=== PATIENT | female | born 1970 | race Two or more races ===

== ENCOUNTER 2021-07-20 14:23 | Inpatient (IN) | payer BC, SELFPAY ==
--- NOTE | ~2021-07-20 | CT_ITS ---
EXAMINATION: CT ABDOMEN AND PELVIS WITHOUT CONTRAST CLINICAL INFORMATION: Flank pain. COMPARISON: None TECHNIQUE: Multidetector volumetric imaging was performed from the superior aspect of the liver through the pubic symphysis. Sagittal and coronal reformatted images were obtained on the technologist's workstation. This CT examination was performed using dose optimization techniques as appropriate, variously including the following: *Automated exposure control *Adjustment of mA and/or kV according to patient size (this includes techniques or standardized protocols for targeted exams where dose is matched to indication/reason for exam; i.e. extremities or head) *Use of iterative reconstruction technique DLP: 542 mGy-cm FINDINGS: LUNG BASES: The visualized lung bases are unremarkable. LIVER, GALLBLADDER, AND BILIARY TREE: The liver is normal in size, shape, and attenuation. No focal hepatic lesion or biliary ductal dilatation is present. The gallbladder is nondistended with no evidence of radiopaque gallstones, gallbladder wall thickening, or obvious pericholecystic inflammatory changes. PANCREAS: Unremarkable. SPLEEN: Unremarkable. ADRENAL GLANDS: Unremarkable. KIDNEYS AND URETERS: The kidneys are normal in size, shape, and attenuation. No renal or ureteral stone. Minimal asymmetry of the proximal right ureter with minimal adjacent stranding. Findings could represent a recently passed stone versus a mild infectious or inflammatory process. No renal parenchymal lesion, however, evaluation is limited without IV contrast. BLADDER: Unremarkable. GASTROINTESTINAL TRACT: Mild stool throughout the colon. No small or large bowel obstruction. No bowel wall thickening or associated inflammatory change. Unremarkable appendix. PERITONEAL CAVITY: No intra-abdominal free air or free fluid. No intra-abdominal mass or organized fluid collection/abscess formation. ABDOMINAL WALL: No significant hernia is appreciated. LYMPH NODES: Normal. VASCULAR: Unremarkable. PELVIC VISCERA: The uterus and adnexa are unremarkable. OSSEOUS STRUCTURES: Unremarkable. CT/CT abdomen pelvis wo con IMPRESSION: 1. Minimal asymmetric prominence of the proximal right ureter with minimal adjacent stranding. Findings could represent a recently passed stone. No renal or ureteral stone. No significant hydronephrosis or nephrolithiasis. Unremarkable urinary bladder without associated calcification or inflammatory change. 2. Mild stool throughout the colon. No small or large bowel obstruction. Unremarkable appendix. 3. No intra-abdominal mass, lymphadenopathy, or ascites.
[2021-07-20 14:54] VITALS: BP 131/87; PULSE 111; RESP 18; TEMP 37.4; O2SAT 97; BMI 26.7
[2021-07-20 15:59] LABS: MANUAL DIFF FLAG NO
[2021-07-20 16:01] LABS: Basophils Percent Auto 0.3 % (0-2); Hematocrit 35.2 % (37-47); Hemoglobin 11.6 g/dl (12.0-16.0); Imm Gran Abs Auto 0.02 X10*3/uL (0.00-0.03); Imm Gran Pct Auto 0.3 % (0.0-0.4); Lymphocytes Absolute Auto 0.9 X10*3/uL (1.2-4.9); Lymphocytes Percent Auto 14.1 % (20-40); Mean Corpuscular Hemoglobin 27.7 pg (27.0-33.0); Mean Platelet Volume 10.2 fL (9.4-12.3); Monocytes Absolute Auto 0.3 X10*3/uL (0.1-1.2); Monocytes Percent Auto 4.7 % (2-11); Neutrophils Absolute Auto 4.9 X10*3/uL (2.0-8.3); Neutrophils Percent Auto 80.6 % (45-73); Platelet Count 240 X10*3/uL (160-400); Red Blood Count 4.19 X10*6/uL (4.20-5.50); Red Cell Distribution Width 13.1 % (11.0-16.0); White Blood Count 6.1 X10*3/uL (4.8-10.8)
[2021-07-20 16:12] LABS: Appearance Urine HAZY; Color Urine YELLOW; Glucose Urine UA NEG (NEG); Leukocyte Esterase Urine NEG (NEG); Nitrite Urine NEG (NEG); Specific Gravity - Urine <= 1.005 (1.005-1.025); UACC Culture Trigger NO; Urine Blood TRACE (NEG); Urine Ketones NEG (NEG); Urine Protein 1+ MG/DL (NEG-TRACE)
[2021-07-20 16:18] LABS: Alanine Aminotransferase 41 U/L (0-31); Albumin Level 4.2 g/dL (3.5-5.0); Alkaline Phosphatase 97 U/L (39-117); Anion Gap 13 (12-20); Aspartate Amino Transferase 84 U/L (5-31); Bilirubin Total 1.8 mg/dL (0.0-1.0); Blood Urea Nitrogen 7 mg/dL (9-16); Calcium 9.2 mg/dL (8.4-10.2); Carbon Dioxide 25 mmol/L (22-29); Chloride 102 mmol/L (96-108); Estimated Glomerular Filt Rate > 60; Glucose Random 128 mg/dL (60-115); Potassium 3.5 mmol/L (3.3-5.1); Sodium 136 mmol/L (135-145); Total Protein 7.4 g/dL (6.5-8.0)
[2021-07-20 16:26] LABS: RBC Urine 0 /HPF (0); Squamous Epithelial Cell Urine 1+ /LPF; WBC Urine 0-2 /HPF (0-4)
--- NOTE | 2021-07-20 16:44 | ED.FEMALEGU ---
HPI - Female Genitourinary General Chief complaint: Urogenital-Female Stated complaint: uti Source: patient Mode of arrival: ambulatory Limitations: no limitations History of Present Illness HPI Narrative: 51-year-old female presents with fevers, bilateral flank and abdominal pain, was treated for UTI on 07/14 with Augmentin. Patient states the symptoms have worsened, feels tired, fatigued, nauseous is having a difficult time getting comfortable. MD elicited complaint: UTI Pertinent past history: recurrent UTIs Onset (ago): week(s) (1) Location of symptoms: suprapubic and flank Severity: moderate Severity scale (1-10): 8 Quality of pain: dull and aching Consistency: constant Vaginal discharge: none Vaginal bleeding: none Urinary symptoms: Flank Pain Exacerbating factors: urination, movement and palpation Relieving factors: none Associated symptoms: abdominal pain, loss of appetite, weakness, fever, chills and nausea Treatment prior to arrival: none Patient : No Related Data Allergies Allergy/AdvReac Type Severity Reaction Status Date / Time Iodinated Contrast Media AdvReac Rash Verified 07/20/21 14:53 [IV Contrast Dye] Review of Systems Review of Systems: Constitutional: Positive Fever, positive Chills ENT/Mouth: No sore throat Eyes: No Eye Pain, No Swelling, No Redness Cardiovascular: No Chest Pain, No SOB Respiratory: No Cough, No Sputum, No Wheezing Gastrointestinal: positive Nausea, no Vomiting, No Diarrhea, positive abdominal pain Genitourinary: positive Dysuria, positive urinary frequency, no Hematuria, positive Flank Pain, no hesitancy Musculoskeletal: No joint pain, No Myalgias Skin: No Skin Lesions, No rash Neuro: No Weakness, No Numbness, No Headache Psych: No Anxiety/Panic, No Depression Heme/Lymph: No Bruising, No Lymphadenopathy Endocrine: No Polyuria, No Polydipsia Yes all other systems are reviewed and are negative [facility] Past Medical History Attestation statement: The following information was validated with the patient. 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 Oriented X3. Moderate distress. Eyes: Pupils equal, round and reactive to light. ENT: Pharynx normal. Neck: Normal inspection. Neck supple. CVS: Tachycardic heart rate and rhythm. Pulses normal. Respiratory: No respiratory distress. Breath sounds normal. Abdomen: Soft and tender to the right lower left lower and suprapubic, positive CVA tenderness bilaterally. Skin: Skin warm and dry. Normal skin color. Normal skin turgor. Extremities: No lower extremity edema. Moves all extremities against resistance. Strength 5/5. Neuro: No motor deficit. No sensory deficit. Cranial nerves 2-12 intact. Course Course Course Narrative: 51-year-old female presents for worsening UTI symptoms, increased fevers measuring as high as 101.6, with bilateral flank pain radiating to both groins and suprapubic. Patient was started on Augmentin on 07/14 for a UTI, has been taking medications as prescribed. Symptoms have worsening, physical presentation concerning for possible kidney stone at, pyelo, sepsis. Will resuscitate with 2 L of fluid, IV ceftriaxone, labs, cultures are pending. CT abdomen and pelvis show some stranding, urinalysis shows trace of heme, will discuss with hospitalist. 6:11 p.m. patient will be admitted for UTI, pyelonephritis. Patient and patient's family verbalized understanding of and agrees with plan of care. Consultations Consultation #1: [place] Time: 18:10 MDM - Female Genitourinary MDM Narrative Medical decision making narrative: Pyelonephritis, kidney stone, sepsis Differential Diagnosis Differential diagnosis: Likely urinary tract infection Medical Records Attestation: I reviewed the patient's medical records. Lab Data Attestation: I reviewed the patient's lab results. Result diagrams: 07/20/21 15:55 07/20/21 15:55 Labs: Lab Results 07/20/21 07/20/21 07/20/21 Range/Units 15:55 15:55 15:55 WBC 6.1 (4.8-10.8) X10*3/uL RBC 4.19 L (4.20-5.50) X10*6/uL Hgb 11.6 L (12.0-16.0) g/dl Hct 35.2 L (37-47) % MCV 84.0 (80-98) fL MCH 27.7 (27.0-33.0) pg MCHC 33.0 (31.0-35.0) g/dl RDW 13.1 (11.0-16.0) % Plt Count 240 (160-400) X10*3/uL MPV 10.2 (9.4-12.3) fL Immature Gran % (Auto) 0.3 (0.0-0.4) % Neut % (Auto) 80.6 H (45-73) % Lymph % (Auto) 14.1 L (20-40) % [place] % (Auto) 4.7 (2-11) % Eos % (Auto) 0.0 (0-4) % Baso % (Auto) 0.3 (0-2) % Lymph # (Auto) 0.9 L (1.2-4.9) X10*3/uL [place] # (Auto) 0.3 (0.1-1.2) X10*3/uL Eos # (Auto) 0.0 (0.0-0.4) X10*3/uL Baso # (Auto) 0.0 (0.0-0.2) X10*3/uL Abs Immat Gran (auto) 0.02 (0.00-0.03) X10*3/uL Absolute Neuts (auto) 4.9 (2.0-8.3) X10*3/uL Absolute Nucleated RBC 0.000 (0.0-0.012) X10*3/uL Nucleated RBC % (auto) 0.0 (0.0-0.2) /100WBC Sodium 136 (135-145) mmol/L Potassium 3.5 (3.3-5.1) mmol/L Chloride 102 (96-108) mmol/L Carbon Dioxide 25 (22-29) mmol/L Anion Gap 13 (12-20) BUN 7 L (9-16) mg/dL Creatinine 0.74 (0.5-1.4) mg/dL Estim Creat Clear Calc 92.0 Estimated GFR > 60 Random Glucose 128 H (60-115) mg/dL Lactic Acid (0.5-2.0) mmol/L Calcium 9.2 (8.4-10.2) mg/dL Total Bilirubin 1.8 H (0.0-1.0) mg/dL AST 84 H (5-31) U/L ALT 41 H (0-31) U/L Alkaline Phosphatase 97 (39-117) U/L Total Protein 7.4 (6.5-8.0) g/dL Albumin 4.2 (3.5-5.0) g/dL Urine Color YELLOW Urine Appearance HAZY Urine pH 6.0 (5.0-8.0) Ur Specific [place] <= 1.005 (1.005-1.025) Urine Protein 1+ H (NEG-TRACE) MG/DL Urine Glucose (UA) NEG (NEG) MG/DL Urine Ketones NEG (NEG) MG/DL Urine Blood TRACE (NEG) Urine Nitrite NEG (NEG) Ur Leukocyte Esterase NEG (NEG) Urine RBC 0 (0) /HPF Urine WBC 0-2 (0-4) /HPF Ur Squamous Epith Cells 1+ /LPF Urine Bacteria NONE /LPF Coronavirus (PCR) (Negative) Influenza Type A (PCR) (Negative) Influenza Type B (PCR) (Negative) RSV RNA Qual (PCR) (Negative) 07/20/21 07/20/21 Range/Units 17:11 17:11 WBC (4.8-10.8) X10*3/uL RBC (4.20-5.50) X10*6/uL Hgb (12.0-16.0) g/dl Hct (37-47) % MCV (80-98) fL MCH (27.0-33.0) pg MCHC (31.0-35.0) g/dl RDW (11.0-16.0) % Plt Count (160-400) X10*3/uL MPV (9.4-12.3) fL Immature Gran % (Auto) (0.0-0.4) % Neut % (Auto) (45-73) % Lymph % (Auto) (20-40) % [place] % (Auto) (2-11) % Eos % (Auto) (0-4) % Baso % (Auto) (0-2) % Lymph # (Auto) (1.2-4.9) X10*3/uL [place] # (Auto) (0.1-1.2) X10*3/uL Eos # (Auto) (0.0-0.4) X10*3/uL Baso # (Auto) (0.0-0.2) X10*3/uL Abs Immat Gran (auto) (0.00-0.03) X10*3/uL Absolute Neuts (auto) (2.0-8.3) X10*3/uL Absolute Nucleated RBC (0.0-0.012) X10*3/uL Nucleated RBC % (auto) (0.0-0.2) /100WBC Sodium (135-145) mmol/L Potassium (3.3-5.1) mmol/L Chloride (96-108) mmol/L Carbon Dioxide (22-29) mmol/L Anion Gap (12-20) BUN (9-16) mg/dL Creatinine (0.5-1.4) mg/dL Estim Creat Clear Calc Estimated GFR Random Glucose (60-115) mg/dL Lactic Acid 1.3 (0.5-2.0) mmol/L Calcium (8.4-10.2) mg/dL Total Bilirubin (0.0-1.0) mg/dL AST (5-31) U/L ALT (0-31) U/L Alkaline Phosphatase (39-117) U/L Total Protein (6.5-8.0) g/dL Albumin (3.5-5.0) g/dL Urine Color Urine Appearance Urine pH (5.0-8.0) Ur Specific [place] (1.005-1.025) Urine Protein (NEG-TRACE) MG/DL Urine Glucose (UA) (NEG) MG/DL Urine Ketones (NEG) MG/DL Urine Blood (NEG) Urine Nitrite (NEG) Ur Leukocyte Esterase (NEG) Urine RBC (0) /HPF Urine WBC (0-4) /HPF Ur Squamous Epith Cells /LPF Urine Bacteria /LPF Coronavirus (PCR) NEGATIVE (Negative) Influenza Type A (PCR) NEGATIVE (Negative) Influenza Type B (PCR) NEGATIVE (Negative) RSV RNA Qual (PCR) NEGATIVE (Negative) Imaging Data CT scan - abdomen: Attestation: I personally reviewed and interpreted this imaging study as follows: Radiologist's impression: EXAMINATION: XR CHEST CLINICAL INFORMATION: Shortness of breath. COMPARISON: 07/12/21. TECHNIQUE: Frontal view of the chest was obtained. FINDINGS: Evaluation is limited by suboptimal inspiration. The lungs are clear with no focal opacity or other abnormality is seen. The pleural spaces are clear. The heart and mediastinal structures are normal. XR/XR chest 1V IMPRESSION: Suboptimal evaluation with low lung volumes. No abnormality demonstrated. ? Critical Care Time Critical Care Time Critical Care Time: Yes Total Critical Care Time: 45 Attestation: I have personally provided critical care time exclusive of time spent on separately billable procedures. Time includes review of laboratory data, radiology results, discussion with consultants, and monitoring for potential decompensation. Interventions were performed as documented. Discharge Plan Discharge Clinical Impression: Pyelonephritis Urinary tract infection Qualifiers: Urinary tract infection type: acute pyelonephritis Qualified Code(s): N10 - Acute pyelonephritis Patient Disposition: Admitted As Inpatient
[2021-07-20] MEDS: Acetaminophen 325 MG TABLET 650 MG PO ×2 (17:09→20:21)
[2021-07-20] MEDS: 0.9 % Sodium Chloride 1,000 ML 999 ML IVCONT ×2 (17:09→18:20)
[2021-07-20 17:32] LABS: Lactic Acid 1.3 mmol/L (0.5-2.0)
[2021-07-20 18:18] LABS: Influenza A PCR NEGATIVE (Negative); Influenza B PCR NEGATIVE (Negative); Resp Syncy Virus RNA Qual PCR NEGATIVE (Negative); SARS COV2 PCR INHOUSE NEGATIVE (Negative)
[2021-07-20] MEDS: Morphine Sulfate 4 MG/ML CARTRIDGE IVPUSH (18:23)
[2021-07-20] MEDS: cefTRIAXone sodium 1 GM in 0.9 % Sodium Chloride 50 ML IV (18:27)
[2021-07-20 18:28] VITALS: BP 140/88; PULSE 82; RESP 18; TEMP 36.9; O2SAT 96
[2021-07-20 19:13] VITALS: BP 113/60; PULSE 80; RESP 18; TEMP 36.6; O2SAT 98
--- NOTE | 2021-07-20 19:23 | PC.NURSE ---
Pt alert and oriented x4, calm and cooperative. Pt states 5/10 lower abd pain. IV intact. Vitals stable, pt remains afebrile. Pt resting in stretcher at this time, will continue to monitor.
--- NOTE | 2021-07-20 19:45 | P.HPHOSP_ITS ---
History of Present Illness Date of Service: 07/20/21 Chief Complaint: Bilateral flank pain 51-year-old female With a past medical history of kidney stones presented to the hospital with a chief complaint of left bad pain. Patient reported that she was diagnosed with urinary tract infection and was given Augmentin as outpatient and had urine test done with the PCP on 07/14/2021; Since then she has been not feeling well; her symptoms have been gradually worsening; complains of left side abdominal pain/flank pain; complains of burning when she pees. Patient initially thought she probably had a kidney stone; denies any blood in the urine. Mentioned that today sugar call from the PCP of his that her urine is growing E coli. She has been complaint with home medications including pain medications antibiotics; she took her Tylenol and states she got a temperature of and 101 F; associated chills and whole-body rigors. Hence decided to come to evaluation. Denies any chest pain palpitations lightheadedness or dizziness. Denies any numbness tingling or focal weakness. Review of all other systems is negative except mentioned above ER course: Per ER team patient's exam bilateral CVA tenderness noted; patient's urinalysis negative-attributed to recent antibiotics; CT scan showed Minimal asymmetric prominence of the proximal right ureter with minimal adjacent stranding.? Given ceftriaxone. Admitted to the hospital for further management. [facility] Medical History Kidney abnormality of fetus on ultrasound Kidney stone Pertinent family history: Reviewed. Noncontributory to the current presentation Social History Alcohol intake: never Patient Tobacco Use Status: Never used Tobacco Use of substances other than those prescribed or required for medical reasons: No Advance Directives: No Advance Directives Information Provided: No Patient : No Meds Allergies Allergy/AdvReac Type Severity Reaction Status Date / Time Iodinated Contrast Media AdvReac Rash Verified 07/20/21 14:53 [IV Contrast Dye] Active Medications: Current Medications Acetaminophen (Acetaminophen 325 Mg Tablet) 650 mg PO Q6H PRN PRN Reason: Pain, Mild (Pain Scale 1-3) Heparin Sodium (Porcine) (Heparin Sodium,Porcine 5,000 Unit/Ml Vial) 5,000 unit SUBCUT Q8H GIULIA Magnesium Hydroxide (Milk Of Magnesia 30 Ml Oral.Susp) 30 ml PO DAILY PRN PRN Reason: Constipation Melatonin (Melatonin 3 Mg Tablet) 6 mg PO BEDTIME PRN PRN Reason: Insomnia Oxycodone HCl (Oxycodone Hcl Immed Release 5 Mg Tablet) 5 mg PO Q6H PRN PRN Reason: Pain, Severe (Pain Scale 7-10) Senna (Sennosides 8.6 Mg Tablet) 17.2 mg PO BEDTIME PRN PRN Reason: Constipation Sodium Chloride (0.9 % Sodium Chloride Flush 3 Ml Syringe) 3 ml IVFLUSH QSHIFT [facility] Physical Exam Vital Signs and Narrative: Vital Signs: Last Vital Signs Temp 98 F 07/20/21 19:13 Pulse 80 07/20/21 19:13 Resp 18 07/20/21 19:13 BP 113/60 07/20/21 19:13 Pulse Ox 98 07/20/21 19:13 Body Mass Index 26.7 Gen: Appears be in no acute distress HEENT: NCAT, Moist mucosa. Pulmonary: Vesicular breath sounds, fair air entry CVS: Normal S1-S2 Abdomen: BS+, Soft, Nontender; bilateral CVA tenderness positive; no guarding or rigidity and that did abdomen Extremities: Warm well perfused Neuro: Alert and awake. Results Labs CBC and Chem 7: 07/20/21 15:55 07/20/21 15:55 Labs: Laboratory Results - last 24 hr 07/20/21 07/20/21 07/20/21 15:55 15:55 15:55 MCV 84.0 MCH 27.7 MCHC 33.0 RDW 13.1 Plt Count 240 MPV 10.2 Immature Gran % (Auto) 0.3 Neut % (Auto) 80.6 H Lymph % (Auto) 14.1 L [place] % (Auto) 4.7 Eos % (Auto) 0.0 Baso % (Auto) 0.3 Lymph # (Auto) 0.9 L [place] # (Auto) 0.3 Eos # (Auto) 0.0 Baso # (Auto) 0.0 Abs Immat Gran (auto) 0.02 Absolute Neuts (auto) 4.9 Absolute Nucleated RBC 0.000 Nucleated RBC % (auto) 0.0 Anion Gap 13 Estim Creat Clear Calc 92.0 Estimated GFR > 60 Random Glucose 128 H Lactic Acid Calcium 9.2 Total Bilirubin 1.8 H AST 84 H ALT 41 H Alkaline Phosphatase 97 Total Protein 7.4 Albumin 4.2 Urine Color YELLOW Urine Appearance HAZY Urine pH 6.0 Ur Specific [place] <= 1.005 Urine Protein 1+ H Urine Glucose (UA) NEG Urine Ketones NEG Urine Blood TRACE Urine Nitrite NEG Ur Leukocyte Esterase NEG Urine RBC 0 Urine WBC 0-2 Ur Squamous Epith Cells 1+ Urine Bacteria NONE Coronavirus (PCR) Influenza Type A (PCR) Influenza Type B (PCR) RSV RNA Qual (PCR) 07/20/21 07/20/21 17:11 17:11 MCV MCH MCHC RDW Plt Count MPV Immature Gran % (Auto) Neut % (Auto) Lymph % (Auto) [place] % (Auto) Eos % (Auto) Baso % (Auto) Lymph # (Auto) [place] # (Auto) Eos # (Auto) Baso # (Auto) Abs Immat Gran (auto) Absolute Neuts (auto) Absolute Nucleated RBC Nucleated RBC % (auto) Anion Gap Estim Creat Clear Calc Estimated GFR Random Glucose Lactic Acid 1.3 Calcium Total Bilirubin AST ALT Alkaline Phosphatase Total Protein Albumin Urine Color Urine Appearance Urine pH Ur Specific [place] Urine Protein Urine Glucose (UA) Urine Ketones Urine Blood Urine Nitrite Ur Leukocyte Esterase Urine RBC Urine WBC Ur Squamous Epith Cells Urine Bacteria Coronavirus (PCR) NEGATIVE Influenza Type A (PCR) NEGATIVE Influenza Type B (PCR) NEGATIVE RSV RNA Qual (PCR) NEGATIVE Imaging Radiologist's Impressions: Impressions Abdomen/Pelvis CT 07/20/21 16:47 IMPRESSION: 1. Minimal asymmetric prominence of the proximal right ureter with minimal adjacent stranding. Findings could represent a recently passed stone. No renal or ureteral stone. No significant hydronephrosis or nephrolithiasis. Unremarkable urinary bladder without associated calcification or inflammatory change. 2. Mild stool throughout the colon. No small or large bowel obstruction. Unremarkable appendix. 3. No intra-abdominal mass, lymphadenopathy, or ascites. Assessment and Plan 51-year-old female with a past medical history of kidney stones, recent diagnosis of UTI presented to the hospital with a chief complaint of bilateral flank pain; noted to have pyelonephritis. Admitted for further management. UTI: Continue ceftriaxone. Follow final culture results from [facility]. Pain control Left-sided abdominal pain: CT scan shows findings on the right side. No guarding or rigidity on examination. Patient had left-sided CVA tenderness. Mild stool burden noted on the CT abdomen. Constipation likely contributing. Bowel regimen Mild transaminitis: Will obtain acute hepatitis panel. CT scan showed normal liver and gallbladder. DVT prophylaxis: Subcu heparin Code status: Full code Quality Stroke Does the patient have a stroke diagnosis?: No VTE Prior VTE?: No VTE Risk Level:: Medical - moderate - high VTE Device Contraindication: Treatment Not Indicated VTE Drug Contraindication: N/A - Med Ordered
[2021-07-20] MEDS: Heparin Sodium,Porcine 5,000 UNIT/ML VIAL 5000 UNIT SUBCUT (20:20)
[2021-07-21 06:03] VITALS: BP 113/72; PULSE 73; RESP 15; TEMP 36.9; O2SAT 97
--- NOTE | 2021-07-21 06:24 | PC.NURSE ---
Pt alert and oriented x4, calm and cooperative. Pt denies pain at this time. Pt slept most of shift. Pt resting in stretcher without complaints, IV intact. Will continue to monitor.
[2021-07-21 06:39] LABS: MANUAL DIFF FLAG NO
[2021-07-21 06:54] LABS: Basophils Percent Auto 0.2 % (0-2); Eosinophils Percent Auto 0.7 % (0-4); Hematocrit 31.4 % (37-47); Hemoglobin 10.3 g/dl (12.0-16.0); Imm Gran Abs Auto 0.04 X10*3/uL (0.00-0.03); Imm Gran Pct Auto 0.9 % (0.0-0.4); Lymphocytes Absolute Auto 1.2 X10*3/uL (1.2-4.9); Lymphocytes Percent Auto 27.5 % (20-40); Mean Corpuscular HGB Conc 32.8 g/dl (31.0-35.0); Mean Corpuscular Hemoglobin 27.8 pg (27.0-33.0); Mean Corpuscular Volume 84.6 fL (80-98); Mean Platelet Volume 10.4 fL (9.4-12.3); Monocytes Absolute Auto 0.4 X10*3/uL (0.1-1.2); Monocytes Percent Auto 9.2 % (2-11); Neutrophils Absolute Auto 2.7 X10*3/uL (2.0-8.3); Neutrophils Percent Auto 61.5 % (45-73); Platelet Count 195 X10*3/uL (160-400); Red Blood Count 3.71 X10*6/uL (4.20-5.50); Red Cell Distribution Width 13.1 % (11.0-16.0); White Blood Count 4.4 X10*3/uL (4.8-10.8)
[2021-07-21 07:03] LABS: Anion Gap 10 (12-20); Blood Urea Nitrogen 5 mg/dL (9-16); Calcium 8.3 mg/dL (8.4-10.2); Carbon Dioxide 26 mmol/L (22-29); Chloride 108 mmol/L (96-108); Creatinine Clr Calc Pharmacy 104.7; Estimated Glomerular Filt Rate > 60; Glucose Random 126 mg/dL (60-115); Potassium 3.5 mmol/L (3.3-5.1); Sodium 140 mmol/L (135-145)
[2021-07-21 07:21] LABS: HBS Num1 0.18 mIU/mL (0-7.99); HBc Num1 0.13 S/CO (0.00-0.79); Hepatitis B Core Antibody Nonreactive (Nonreactive); ~HepC Num1 0.12 S/CO (0.00-0.79); ~Hepatitis B Surface Antibody NONREACTIVE (Nonreactive); ~Hepatitis C Antibody Nonreactive (Nonreactive)
[2021-07-21 07:27] LABS: HBsAGNum1 0.17 S/CO (0.00-0.99); Hepatitis B Surface Antigen Negative (Negative)
[2021-07-21] MEDS: bisacodyL 5 MG TABLET.DR 10 MG PO (09:34)
[2021-07-21] MEDS: 0.9 % Sodium Chloride Flush 3 ML SYRINGE IVFLUSH (09:36)
[2021-07-21 09:39] VITALS: BP 103/76; PULSE 91; RESP 16; O2SAT 98
--- NOTE | 2021-07-21 09:53 | MHC.CM.PN ---
Addendum entered by Xin Gordon 07/21/21 10:21: NEW HCP SENT TO .I.. Original Note: PT REPORTS SHE LIVES WITH HER S/O AND IS COMPLETELY INDEPENDENT WITH ADLS PT DENIES USE OF DME AND HAS NO IN HOME SERVICES PT CONFIRMS HER PCP IS LANDRY RECINOS PT COMPLETED A HCP TODAY NAMING HER S/O ALFRED BARRAGAN HER AGENT CURRENT DC PLAN IS HOME WITH NO SERVICES PT WILL SELF ARRANGE TRANSPORT
--- NOTE | 2021-07-21 11:07 | P.DS_ITS ---
DS: Providers Provider Date of Service: 07/21/21 Date of admission: 07/20/21 19:42 Primary care physician: Danyel Fields MD DS: Summary Hospital Course Hospital Course: 51 year old female with history of kidney stone who was diagnosed with UTI on outpatient basis and initially given Levaquin for 2 days but did not improve and then was given Augmentin which she took for 2 day also, and she continue to have fever and flank tenderness and fever and so PCP directed her to the ED following culture result.. She was given Ceftriaxone in ED, CT scan shows minimal c hanges--see below ... I obtained culture result from [facility] and show the following. She has been afebrile here and feels comfortable at this point and will be discharge with Ceftin 500 bid for 10 days. Time Spent with Patient Time attestation: Total time spent providing and/or coordinating discharge services: Discharge coordination time: Greater than 30 minutes Quality: Stroke Does the patient have a stroke diagnosis?: No Physical Exam Vital Signs: Vital Signs: Last Vital Signs Temp 98.5 F 07/21/21 06:03 Pulse 91 07/21/21 09:39 Resp 16 07/21/21 09:39 BP 103/76 07/21/21 09:39 Pulse Ox 98 07/21/21 09:39 Body Mass Index 26.7 General: AO X 3, no acute distress Resp: CTA bilateral CVS: S1,S2,RRR GI: +BS, NT, no distention : no flank tenderness Skin: No rash Neuro: motor grossly intact Psych: appropriate affect DS: Data Data Completed and Pending Labs on day of discharge: Laboratory Results - last 24 hr 07/20/21 07/20/21 07/20/21 15:55 15:55 15:55 WBC 6.1 RBC 4.19 L Hgb 11.6 L Hct 35.2 L MCV 84.0 MCH 27.7 MCHC 33.0 RDW 13.1 Plt Count 240 MPV 10.2 Immature Gran % (Auto) 0.3 Neut % (Auto) 80.6 H Lymph % (Auto) 14.1 L [place] % (Auto) 4.7 Eos % (Auto) 0.0 Baso % (Auto) 0.3 Lymph # (Auto) 0.9 L [place] # (Auto) 0.3 Eos # (Auto) 0.0 Baso # (Auto) 0.0 Abs Immat Gran (auto) 0.02 Absolute Neuts (auto) 4.9 Absolute Nucleated RBC 0.000 Nucleated RBC % (auto) 0.0 Sodium 136 Potassium 3.5 Chloride 102 Carbon Dioxide 25 Anion Gap 13 BUN 7 L Creatinine 0.74 Estim Creat Clear Calc 92.0 Estimated GFR > 60 Random Glucose 128 H Lactic Acid Calcium 9.2 Total Bilirubin 1.8 H AST 84 H ALT 41 H Alkaline Phosphatase 97 Total Protein 7.4 Albumin 4.2 Urine Color YELLOW Urine Appearance HAZY Urine pH 6.0 Ur Specific [place] <= 1.005 Urine Protein 1+ H Urine Glucose (UA) NEG Urine Ketones NEG Urine Blood TRACE Urine Nitrite NEG Ur Leukocyte Esterase NEG Urine RBC 0 Urine WBC 0-2 Ur Squamous Epith Cells 1+ Urine Bacteria NONE Coronavirus (PCR) Hep Bs Antigen Hep Bs Antibody Hep B Core Total Ab Hepatitis C Ab (EIA) Influenza Type A (PCR) Influenza Type B (PCR) RSV RNA Qual (PCR) 07/20/21 07/20/21 07/21/21 17:11 17:11 06:19 WBC RBC Hgb Hct MCV MCH MCHC RDW Plt Count MPV Immature Gran % (Auto) Neut % (Auto) Lymph % (Auto) [place] % (Auto) Eos % (Auto) Baso % (Auto) Lymph # (Auto) [place] # (Auto) Eos # (Auto) Baso # (Auto) Abs Immat Gran (auto) Absolute Neuts (auto) Absolute Nucleated RBC Nucleated RBC % (auto) Sodium Potassium Chloride Carbon Dioxide Anion Gap BUN Creatinine Estim Creat Clear Calc Estimated GFR Random Glucose Lactic Acid 1.3 Calcium Total Bilirubin AST ALT Alkaline Phosphatase Total Protein Albumin Urine Color Urine Appearance Urine pH Ur Specific [place] Urine Protein Urine Glucose (UA) Urine Ketones Urine Blood Urine Nitrite Ur Leukocyte Esterase Urine RBC Urine WBC Ur Squamous Epith Cells Urine Bacteria Coronavirus (PCR) NEGATIVE Hep Bs Antigen Negative Hep Bs Antibody NONREACTIVE Hep B Core Total Ab Nonreactive Hepatitis C Ab (EIA) Nonreactive Influenza Type A (PCR) NEGATIVE Influenza Type B (PCR) NEGATIVE RSV RNA Qual (PCR) NEGATIVE 07/21/21 07/21/21 06:19 06:19 WBC 4.4 L RBC 3.71 L Hgb 10.3 L Hct 31.4 L MCV 84.6 MCH 27.8 MCHC 32.8 RDW 13.1 Plt Count 195 MPV 10.4 Immature Gran % (Auto) 0.9 H Neut % (Auto) 61.5 Lymph % (Auto) 27.5 [place] % (Auto) 9.2 Eos % (Auto) 0.7 Baso % (Auto) 0.2 Lymph # (Auto) 1.2 [place] # (Auto) 0.4 Eos # (Auto) 0.0 Baso # (Auto) 0.0 Abs Immat Gran (auto) 0.04 H Absolute Neuts (auto) 2.7 Absolute Nucleated RBC 0.000 Nucleated RBC % (auto) 0.0 Sodium 140 Potassium 3.5 Chloride 108 Carbon Dioxide 26 Anion Gap 10 L BUN 5 L Creatinine 0.65 Estim Creat Clear Calc 104.7 Estimated GFR > 60 Random Glucose 126 H Lactic Acid Calcium 8.3 L D Total Bilirubin AST ALT Alkaline Phosphatase Total Protein Albumin Urine Color Urine Appearance Urine pH Ur Specific [place] Urine Protein Urine Glucose (UA) Urine Ketones Urine Blood Urine Nitrite Ur Leukocyte Esterase Urine RBC Urine WBC Ur Squamous Epith Cells Urine Bacteria Coronavirus (PCR) Hep Bs Antigen Hep Bs Antibody Hep B Core Total Ab Hepatitis C Ab (EIA) Influenza Type A (PCR) Influenza Type B (PCR) RSV RNA Qual (PCR) Discharge Plan Discharge Anticipated Discharge Date/Time: 07/21/21 10:50 Patient Disposition: Home, Self-Care Discharge Diagnosis: UTI, pyelonephritis Referrals: Danyel Fields MD [Primary Care Provider] - 1 Week Discharge Medications: New cefuroxime axetil 500 mg tablet 500 mg PO BID 10 Days Qty: 20 RF: 0 Discharge Orders: Discharge Order (Routine); Ordered 07/21/21 Ordered By: Pablito Gutierres Diet: advance to usual diet Activity on Discharge: As tolerated Stand Alone Forms: Patient Portal Discharge page Care Plan Goals: Full recovery from UTI and pyelonephritis. Health Concerns: Pyelonephritis, UTI. Plan of Treatment: Take Ceftin as recommended and follow up with your primary care doctor within a week. Assessment: As above. Discharge Date/Time: 07/21/21 11:56
[2021-07-23 09:20] LABS: Hepatitis A Antibody IgM 0.19 Index (0-0.79); ~Hepatitis A Antibody IgM Nonreactive (Nonreactive)
== END 2021-07-21 11:56 | disposition home or self-care (01) | DRG 463 ==
LOC: HO.ED 18:20 → HO.EDOVER 20:17
PROVIDERS: Nurse Practitioner Family; Admitting Provider Hospitalist; Emergency Provider Emergency Medicine Emergency Medical Services; PCP Internal Medicine; Visit Provider Internal Medicine
DX: N12 Tubulo-interstitial nephritis, not specified as acute or chronic (principal); B96.20 Unspecified Escherichia coli [E. coli] as the cause of diseases classified elsewhere; Z20.822 Contact with and (suspected) exposure to COVID-19; Z87.442 Personal history of urinary calculi; Z87.440 Personal history of urinary (tract) infections
CPT/HCPCS: 0241U; 36415; 74176; 80048; 80053; 81001; 81003; 83605; 85025; 86704; 86706; 86709; 86803; 87040; 87340; 99285; J0696; J2270